=== PATIENT | male | born 1950 | race Hispanic/Latino ===

== ENCOUNTER 2021-12-04 17:15 | Observation (INO) | payer MEDICARE ==
[2021-12-04] MEDS ORDERED: NITROGLYCERIN 0.4 MG TAB SUBL SL ONE (18:00)
--- NOTE | 2021-12-04 18:01 | Emergency Department Report ---
ED General Adult HPI - General Chief complaint: Chest Pain Stated complaint: REFER BY DR MAURICIO PALACIO?: No Time Seen by Provider: 12/04/21 17:29 Source: patient, RN notes reviewed Mode of arrival: Ambulatory Limitations: No Limitations - History of Present Illness Initial comments: The patient is a pleasant 71-year-old gentleman with a reported history of ischemic heart disease, who presents to the ER today after stating that he was referred to the emergency room by his private seo intern for admission and urgent cardiac catheterization. Patient has not taken aspirin for 2 weeks. He is chest pain-free at this time. He states that he has been having intermittent exertional chest pain over the past few days. Pain is associated with exertion. He denies travel, surgery, immobilization, DVT/PE risk factors. He has no c omplaints of pain at this time. He is not COVID-19 vaccinated. -: Gradual, week(s) Location: chest Radiation: non-radiation Severity scale (0 -10): 0 Consistency: intermittent Improves with: rest Worsens with: movement, other (Exertion) - Related Data Allergies Allergy/AdvReac Type Severity Reaction Status Date / Time No Known Allergies Allergy Unverified 12/04/21 17:44 ED Review of Systems ROS: Stated complaint: REFER BY DR MARTÍNEZ Other details as noted in HPI Constitutional: denies: fever Eyes: denies: eye discharge ENT: denies: hearing loss Respiratory: shortness of breath Cardiovascular: chest pain Gastrointestinal: denies: abdominal pain, hematemesis, melena, hematochezia Musculoskeletal: denies: back pain Neurological: denies: weakness Hematological/Lymphatic: denies: easy bleeding ED Past Medical Hx - Past Medical History Previous Medical History?: Yes Hx Hypertension: Yes Hx CVA: No Hx Heart Attack/AMI: No Hx Congestive Heart Failure: No Hx Diabetes: No Hx Deep Vein Thrombosis: No Hx Pulmonary Embolism: No Hx GERD: No Hx Liver Disease: No Hx Renal Disease: No Hx of Cancer: No Hx Sickle Cell Disease: No Hx Arthritis: No Hx Headaches / Migraines: No Hx Seizures: No Hx Kidney Stones: No Hx Psychiatric Treatment: No Hx Asthma: No Hx COPD: No Hx Tuberculosis: No Hx Dementia: No Hx HIV: No Additional medical history: Pt was advised by Dr. Phillips the Body Art Technician to come to [facility] ED for a heart cath in the morning - Surgical History Past Surgical History?: No Hx Coronary Stent: No Hx Open Heart Surgery: No Hx Pacemaker: No Hx Internal Defibrillator: No Hx Cholecystectomy: No Hx Appendectomy: No Hx Breast Surgery: No Additional Surgical History: Heart Cath 5 years ago. Bilateral cataract surgery 2019. ED Physical Exam - General Limitations: No Limitations General appearance: alert, in no apparent distress - Head Head exam: Present: atraumatic, normocephalic - Eye Eye exam: Present: normal appearance, EOMI. Absent: nystagmus - ENT ENT exam: Present: normal exam, normal orophraynx, mucous membranes moist, normal external ear exam - Neck Neck exam: Present: normal inspection, full ROM. Absent: tenderness, meningismus - Respiratory Respiratory exam: Present: normal lung sounds bilaterally. Absent: respiratory distress, wheezes, rales, rhonchi, stridor, decreased breath sounds - Cardiovascular Cardiovascular Exam: Present: regular rate, normal rhythm, normal heart sounds. Absent: bradycardia, tachycardia, irregular rhythm, systolic murmur, diastolic murmur, rubs, gallop - GI/Abdominal GI/Abdominal exam: Present: soft. Absent: distended, tenderness, guarding, rebound, rigid, pulsatile mass - Rectal Rectal exam: Present: deferred - Extremities Exam Extremities exam: Present: normal inspection, full ROM, other (2+ pulses noted in the bilateral upper and lower extremities. There is no palpable cord. negative Homans sign. Muscular compartments are soft. The pelvis is stable.). Absent: pedal edema, calf tenderness - Back Exam Back exam: Present: normal inspection, full ROM. Absent: tenderness, CVA tenderness (R), CVA tenderness (L), paraspinal tenderness, vertebral tenderness - Neurological Exam Neurological exam: Present: alert, oriented X3, normal gait, other (No facial droop. Tongue midline. Extraocular movements intact bilaterally. Facial sens ation intact to light touch in V1, V2, V3 distribution bilaterally. 5 and a 5 strength in 4 extremities. Sensation intact to light touch in 4 extremities.). Absent: motor sensory deficit - Psychiatric Psychiatric exam: Present: normal affect, normal mood - Skin Skin exam: Present: warm, dry, intact, normal color. Absent: rash ED Course Vital Signs 12/04/21 12/04/21 12/04/21 17:56 17:58 20:08 Temperature 97.7 F Pulse Rate 85 Respiratory 17 Rate O2 Sat by Pulse 97 96 Oximetry O2 Sat by Pulse 99 Oximetry [ Digit-Finger] - Reevaluation(s) Reevaluation #1: 12/04/21 19:24 Differential diagnosis, including but not limited to: Acute coronary syndrome, stable angina, unstable angina Assessment and plan: 71-year-old gentleman with probable ischemic heart disease, and probable angina, who is pain-free at this time, who denies DVT/PE risk factors, who is low risk by Wells criteria for pulmonary embolism, referred to the emergency room by his primary seo intern for admission for urgent cardiac catheterization. Obtain appropriate laboratory studies, EKG, chest x-ray the chest, treat with pain medicine, as needed, give aspirin as he states he has not taken aspirin today, as needed nitroglycerin, and admit to the medical service. Discussed with his seo intern after initial laboratory studies and diagnostics have resulted. I discussed this with the patient and his significant other. They articulated understanding. All questions answered. Equal pulses in the upper and lower extremities, no pulsatile abdominal mass, and blood pressure unremarkable at this time. Aortic syndrome is very unlikely at this time. 12/04/21 19:27 Blood pressure 122/71 mmHg 12/04/21 20:07 Patient resting comfortably. Laboratory studies unremarkable. Contacted patient's seo intern, Dr. Martínez. Discussed the patient's history, physical, laboratory studies imaging studies, EKG findings and physical exam findings. Recommends n.p.o. after midnight, heparin drip, states he will follow in consultation. Requested hospitalist team admit patient. Patient updated with findings. He articulates understanding. He verbalizes understanding. All questions answered 12/04/21 21:15 Dr Gould to admit to [facility] - Pulse Oximetry Interpretation Digit-Finger Initial Pulse Oximetry Readin O2 Sat by Pulse Oximetry: 99 Actions Taken: none ED Medical Decision Making - Lab Data Result diagrams: 12/04/21 18:11 12/04/21 18:11 Vital Signs 12/04/21 12/04/21 17:56 17:58 Temperature 97.7 F Pulse Rate 85 Respiratory 17 Rate O2 Sat by Pulse 97 96 Oximetry Lab Results 12/04/21 Range/Units 18:11 WBC 5.7 (4.5-11.0) K/mm3 RBC 4.32 (3.65-5.03) M/mm3 Hgb 14.0 (11.8-15.2) gm/dl Hct 40.7 (35.5-45.6) % MCV 94 (84-94) fl MCH 32 (28-32) pg MCHC 34 (32-34) % RDW 14.0 (13.2-15.2) % Plt Count 227 (140-440) K/mm3 Lymph % (Auto) 22.6 (13.4-35.0) % [place] % (Auto) 8.0 H (0.0-7.3) % Eos % (Auto) 2.1 (0.0-4.3) % Baso % (Auto) 2.3 H (0.0-1.8) % Lymph # (Auto) 1.3 (1.2-5.4) K/mm3 [place] # (Auto) 0.5 (0.0-0.8) K/mm3 Eos # (Auto) 0.1 (0.0-0.4) K/mm3 Baso # (Auto) 0.1 (0.0-0.1) K/mm3 Seg Neutrophils % 65.0 (40.0-70.0) % Seg Neutrophils # 3.7 (1.8-7.7) K/mm3 Lab Results 12/04/21 12/04/21 12/04/21 Range/Units 18:11 18:11 18:11 WBC 5.7 (4.5-11.0) K/mm3 RBC 4.32 (3.65-5.03) M/mm3 Hgb 14.0 (11.8-15.2) gm/dl Hct 40.7 (35.5-45.6) % MCV 94 (84-94) fl MCH 32 (28-32) pg MCHC 34 (32-34) % RDW 14.0 (13.2-15.2) % Plt Count 227 (140-440) K/mm3 Lymph % (Auto) 22.6 (13.4-35.0) % [place] % (Auto) 8.0 H (0.0-7.3) % Eos % (Auto) 2.1 (0.0-4.3) % Baso % (Auto) 2.3 H (0.0-1.8) % Lymph # (Auto) 1.3 (1.2-5.4) K/mm3 [place] # (Auto) 0.5 (0.0-0.8) K/mm3 Eos # (Auto) 0.1 (0.0-0.4) K/mm3 Baso # (Auto) 0.1 (0.0-0.1) K/mm3 Seg Neutrophils % 65.0 (40.0-70.0) % Seg Neutrophils # 3.7 (1.8-7.7) K/mm3 PT 14.5 (12.2-14.9) Sec. INR 1.02 (0.87-1.13) APTT 29.7 (24.2-36.6) Sec. Sodium 139 (137-145) mmol/L Potassium 4.2 (3.6-5.0) mmol/L Chloride 104.5 (98-107) mmol/L Carbon Dioxide 22 (22-30) mmol/L Anion Gap 17 mmol/L BUN 24 H (9-20) mg/dL Creatinine 1.0 (0.8-1.3) mg/dL Estimated GFR > 60 ml/min BUN/Creatinine Ratio 24 % Glucose 95 (75-100) mg/dL Calcium 9.3 (8.4-10.2) mg/dL Total Bilirubin 0.30 (0.1-1.2) mg/dL AST 24 (5-40) units/L ALT 17 (7-56) units/L Alkaline Phosphatase 92 (35-129) units/L Troponin T < 0.010 (0.00-0.029) ng/mL Total Protein 7.2 (6.3-8.2) g/dL Albumin 4.2 (3.9-5) g/dL Albumin/Globulin Ratio 1.4 % - EKG Data -: EKG Interpreted by Or EKG shows normal: sinus rhythm Rate: normal - EKG Data When compared to previous EKG there are: previous EKG unavailable 12/04/21 19:23 The EKG is interpreted at 18: 27 This is a sinus rhythm, with a rate of 81 bpm. There is a normal axis, normal P wave axis, first-degree AV block, and left ventricular hypertrophy. There is no STEMI at this time. There is no prior for comparison. The QTC is 4 3 4 ms - Radiology Data Radiology results: pending, report reviewed, image reviewed CHEST 2 VIEWS INDICATION / CLINICAL INFORMATION: Chest Pain. COMPARISON: None available. FINDINGS: SUPPORT DEVICES: None. HEART / MEDIASTINUM: No significant abnormality. LUNGS / PLEURA: No significant pulmonary or pleural abnormality. No pneumothorax. ADDITIONAL FINDINGS: No significant additional findings. IMPRESSION: 1. No significant abnormality. Signer Name: Avis Arroyo MD Signed: 12/04/2021 5:54 PM Workstation Name: [id number] Critical Care Time: Yes Critical care time in (mins) excluding proc time.: 35 Critical care attestation.: If time is entered above; I have spent that time in minutes in the direct care of this critically ill patient, excluding procedure time. ED Disposition Clinical Impression: Acute chest pain Disposition: 09 ADMITTED INPATIENT Is pt being admited?: Yes Does the pt Need Aspirin: No Condition: Stable Instructions: Chest Pain (ED) Referrals: PRIMARY CARE, [Referring] - 3-5 Days Heart Score - HEART Score History: Moderately suspicious EKG: Non-specific Age: > 65 Risk factors: 1-2 risk factors Troponin: < normal limit HEART Score: 5 - EKG Read Time Time EKG Completed: 18:27 EKG Read Time: 18:27 - Critical Actions Critical Actions: 4-6 pts:12-16.6% risk of adverse cardiac event. Should be admitted
--- NOTE | 2021-12-04 18:58 | XRay Report ---
CHEST 2 VIEWS INDICATION / CLINICAL INFORMATION: Chest Pain. COMPARISON: None available. FINDINGS: SUPPORT DEVICES: None. HEART / MEDIASTINUM: No significant abnormality. LUNGS / PLEURA: No significant pulmonary or pleural abnormality. No pneumothorax. ADDITIONAL FINDINGS: No significant additional findings. IMPRESSION: 1. No significant abnormality. Signer Name: Avis Arroyo MD Signed: 12/04/2021 6:54 PM Workstation Name: [id number]
[2021-12-04] MEDS ORDERED: ASPIRIN 81 MG TAB CHEW PO ONE (19:01)
[2021-12-04] MEDS ORDERED: NITROGLYCERIN 0.4 MG TAB SUBL SL PRN (19:01)
[2021-12-04 19:15] LABS: Basophils # (Auto) 0.1 K/mm3 (0.0-0.1); Basophils % (Auto) 2.3 % (0.0-1.8); Eosinophils # (Auto) 0.1 K/mm3 (0.0-0.4); Eosinophils % (Auto) 2.1 % (0.0-4.3); Hematocrit 40.7 % (35.5-45.6); Lymphocytes # (Auto) 1.3 K/mm3 (1.2-5.4); Lymphocytes % (Auto) 22.6 % (13.4-35.0); Mean Corpuscular HGB Conc 34 % (32-34); Mean Corpuscular Volume 94 fl (84-94); Monocytes # (Auto) 0.5 K/mm3 (0.0-0.8); Platelet Count 227 K/mm3 (140-440); Red Blood Count 4.32 M/mm3 (3.65-5.03)
[2021-12-04 19:28] LABS: INR 1.02 (0.87-1.13); Partial Thromboplastin Time 29.7 Sec. (24.2-36.6)
[2021-12-04 19:34] LABS: Alanine Aminotransferase 17 units/L (7-56); Albumin 4.2 g/dL (3.9-5); BUN/Creatinine Ratio 24; Blood Urea Nitrogen 24 mg/dL (9-20); Calcium 9.3 mg/dL (8.4-10.2); Hemolysis Index 7
[2021-12-04] MEDS ORDERED: HEPARIN 10,000 UNITS/10 ML VIAL IV ONE (20:05)
[2021-12-04] MEDS ORDERED: HEPARIN 10,000 UNITS/10 ML VIAL IV PRN (20:05)
[2021-12-04] MEDS ORDERED: HEPARIN/ 0.45% NACL DRIP 25,000 UNIT/500 ML BAG IV SCH (21:00)
[2021-12-04] MEDS ORDERED: MORPHINE 4 MG/1 ML INJ IV PRN (21:31)
[2021-12-04] MEDS ORDERED: traMADol 50 MG TAB PO PRN (21:31)
[2021-12-04] MEDS ORDERED: ACETAMINOPHEN 325 MG TAB PO PRN (21:31)
--- NOTE | 2021-12-04 21:40 | History and Physical Report ---
History of Present Illness Date of examination: 12/04/21 Date of admission: 12/04/21 Chief complaint: Chest pain History of present illness: 71-year-old gentleman with history of ischemic heart disease and hypertension was brought to the emergency room because of chest pain which is 5-7 over 10 intermittent particularly on exertion over the last few days.patient was referred to the emergency room by his private chalk machine operator for admission and urgent cardiac catheterization. Patient has not taken aspirin for 2 weeks. He is chest pain-free at this time. Pain is associated with exertion. He denies travel, surgery, In the emergency room initial cardiac enzyme is negative. Troponin is 0.010. Subsequently Case was discussed with chalk machine operator. We are going to admit the patient we will put the patient on heparin drip for possible cardiac cath in the morning Past History Past Medical History: CAD, hypertension Past Surgical History: cataract removal, Other (Heart cath 5 years ago) Social history: no significant social history Family history: no significant family history Medications and Allergies Allergies Allergy/AdvReac Type Severity Reaction Status Date / Time No Known Allergies Allergy Unverified 12/04/21 17:44 Active Meds: Active Medications Acetaminophen (Acetaminophen 325 Mg Tab) 650 mg PO Q6H PRN PRN Reason: Pain, Mild (1-3) Aspirin (Aspirin Ec 325 Mg Tab) 325 mg PO QDAY JUSTIN Atorvastatin Calcium (Atorvastatin 40 Mg Tab) 40 mg PO QHS [facility] Heparin Sodium (Porcine) (Heparin 10,000 Units/10 Ml Vial) 3,200 unit 40 unit/kg (3200 unit) IV Q6H PRN PRN Reason: Anti-Xa Assay < 0.1 units/ml Heparin Sodium/Sodium Chloride (Heparin/ 0.45% Nacl-25,000 Unit/500 Ml) 25,000 unit in 500 mls @ 20 mls/hr IV TITRATE JUSTIN; Protocol Sodium Chloride (Nacl 0.45% 1000 Ml) 1,000 mls @ 100 mls/hr IV DIRECT JUSTIN Morphine Sulfate (Morphine 4 Mg/1 Ml Inj) 2 mg IV Q5MIN PRN PRN Reason: Chest Pain unrelieved by NTG Nitroglycerin (Nitroglycerin 0.4 Mg Tab Subl) 0.4 mg SL .Q5MIN PRN PRN Reason: Chest Pain Pantoprazole Sodium (Pantoprazole 40 Mg Tab) 40 mg PO QDAY JUSTIN Sodium Chloride (Sodium Chloride 0.9% 10 Ml Flush Syringe) 10 ml IV PRN PRN PRN Reason: LINE FLUSH Tramadol HCl (Tramadol 50 Mg Tab) 50 mg PO Q6H PRN PRN Reason: Pain, Moderate (4-6) Review of Systems Cardiovascular: chest pain, shortness of breath Exam - Constitutional Vitals: Temp Pulse Resp BP Pulse Ox 97.7 F 85 17 99 12/04/21 17:56 12/04/21 17:56 12/04/21 17:56 12/04/21 21:15 General appearance: Present: no acute distress, well-nourished - EENT Eyes: Present: PERRL ENT: hearing intact, clear oral mucosa - Neck Neck: Present: supple, normal ROM - Respiratory Respiratory effort: normal Respiratory: bilateral: diminished - Cardiovascular Heart Sounds: Present: S1 & S2. Absent: rub, click - Extremities Extremities: pulses symmetrical, No edema Peripheral Pulses: within normal limits - Abdominal General gastrointestinal: Present: soft, non-tender, non-distended, normal bowel sounds Male genitourinary: Present: normal - Integumentary Integumentary: Present: clear, warm, dry - Musculoskeletal Musculoskeletal: gait normal, strength equal bilaterally - Psychiatric Psychiatric: appropriate mood/affect, intact judgment & insight - Neurologic Neurologic: CNII-XII intact, moves all extremities HEART Score - HEART Score EKG: Non-specific Age: > 65 Risk factors: 1-2 risk factors Troponin: Troponin T < 0.010 ng/mL (0.00-0.029) 12/04/21 20:59 Troponin: < normal limit - Critical Actions Critical Actions: 4-6 pts:12-16.6% risk of adverse cardiac event. Should be admitted Results - Labs CBC & Chem 7: 12/04/21 18:11 12/04/21 18:11 Labs: Laboratory Last Values WBC 5.7 K/mm3 (4.5-11.0) 12/04/21 18:11 RBC 4.32 M/mm3 (3.65-5.03) 12/04/21 18:11 Hgb 14.0 gm/dl (11.8-15.2) 12/04/21 18:11 Hct 40.7 % (35.5-45.6) 12/04/21 18:11 MCV 94 fl (84-94) 12/04/21 18:11 MCH 32 pg (28-32) 12/04/21 18:11 MCHC 34 % (32-34) 12/04/21 18:11 RDW 14.0 % (13.2-15.2) 12/04/21 18:11 Plt Count 227 K/mm3 (140-440) 12/04/21 18:11 Lymph % (Auto) 22.6 % (13.4-35.0) 12/04/21 18:11 [place] % (Auto) 8.0 % (0.0-7.3) H 12/04/21 18:11 Eos % (Auto) 2.1 % (0.0-4.3) 12/04/21 18:11 Baso % (Auto) 2.3 % (0.0-1.8) H 12/04/21 18:11 Lymph # (Auto) 1.3 K/mm3 (1.2-5.4) 12/04/21 18:11 [place] # (Auto) 0.5 K/mm3 (0.0-0.8) 12/04/21 18:11 Eos # (Auto) 0.1 K/mm3 (0.0-0.4) 12/04/21 18:11 Baso # (Auto) 0.1 K/mm3 (0.0-0.1) 12/04/21 18:11 Seg Neutrophils % 65.0 % (40.0-70.0) 12/04/21 18:11 Seg Neutrophils # 3.7 K/mm3 (1.8-7.7) 12/04/21 18:11 PT 14.5 Sec. (12.2-14.9) 12/04/21 18:11 INR 1.02 (0.87-1.13) 12/04/21 18:11 APTT 29.7 Sec. (24.2-36.6) 12/04/21 18:11 Sodium 139 mmol/L (137-145) 12/04/21 18:11 Potassium 4.2 mmol/L (3.6-5.0) 12/04/21 18:11 Chloride 104.5 mmol/L (98-107) 12/04/21 18:11 Carbon Dioxide 22 mmol/L (22-30) 12/04/21 18:11 Anion Gap 17 mmol/L 12/04/21 18:11 BUN 24 mg/dL (9-20) H 12/04/21 18:11 Creatinine 1.0 mg/dL (0.8-1.3) 12/04/21 18:11 Estimated GFR > 60 ml/min 12/04/21 18:11 BUN/Creatinine Ratio 24 % 12/04/21 18:11 Glucose 95 mg/dL (75-100) 12/04/21 18:11 Calcium 9.3 mg/dL (8.4-10.2) 12/04/21 18:11 Total Bilirubin 0.30 mg/dL (0.1-1.2) 12/04/21 18:11 AST 24 units/L (5-40) 12/04/21 18:11 ALT 17 units/L (7-56) 12/04/21 18:11 Alkaline Phosphatase 92 units/L (35-129) 12/04/21 18:11 Troponin T < 0.010 ng/mL (0.00-0.029) 12/04/21 20:59 Total Protein 7.2 g/dL (6.3-8.2) 12/04/21 18:11 Albumin 4.2 g/dL (3.9-5) 12/04/21 18:11 Albumin/Globulin Ratio 1.4 % 12/04/21 18:11 - Imaging and Cardiology Chest x-ray: report reviewed Assessment and Plan VTE prophylaxis?: Chemical Plan of care discussed with patient/family: Yes - Patient Problems (1) Acute coronary syndrome Current Visit: Yes Status: Acute Plan to address problem: Admit the patient to the medical telemetry. Nothing by mouth. Aspirin 325 mg p.o. daily. Lipitor 40 mg p.o. daily. Heparin drip as per protocol. Nitroglycerin as needed. Serial cardiac enzyme. Cardiology is consulted and patient is going for cardiac cath in the morning (2) CAD (coronary artery disease) Current Visit: Yes Status: Acute Plan to address problem: Nothing by mouth. Aspirin 325 mg p.o. daily. Lipitor 40 mg p.o. daily. Heparin drip as per protocol. Nitroglycerin as needed. Serial cardiac enzyme. Cardiology is consulted and patient is going for cardiac cath in the morning (3) Hypertension Current Visit: Yes Status: Acute Plan to address problem: Hydralazine 10 mg IV every 6 hours as needed. We will continue the home medication (4) DVT prophylaxis Current Visit: Yes Status: Acute Plan to address problem: Heparin drip per DVT prophylaxis. Protonix 40 mg p.o. daily for GI prophylaxis. Patient is a full code
[2021-12-04] MEDS ORDERED: SODIUM CHLORIDE 0.9% 500 ML 500 ML IV SCH (22:00)
[2021-12-04 22:17] LABS: BUN/Creatinine Ratio 23; Blood Urea Nitrogen 23 mg/dL (9-20); Calcium 9.4 mg/dL (8.4-10.2); Hemolysis Index 12
[2021-12-04 22:59] LABS: Basophils # (Auto) 0.1 K/mm3 (0.0-0.1); Basophils % (Auto) 0.8 % (0.0-1.8); Eosinophils # (Auto) 0.2 K/mm3 (0.0-0.4); Eosinophils % (Auto) 2.3 % (0.0-4.3); Hematocrit 41.3 % (35.5-45.6); Hemoglobin 14.3 gm/dl (11.8-15.2); Lymphocytes # (Auto) 2.1 K/mm3 (1.2-5.4); Lymphocytes % (Auto) 31.7 % (13.4-35.0); Mean Corpuscular HGB Conc 35 % (32-34); Mean Corpuscular Volume 93 fl (84-94); Monocytes # (Auto) 0.6 K/mm3 (0.0-0.8); Monocytes % (Auto) 9.5 % (0.0-7.3); Platelet Count 230 K/mm3 (140-440); Red Blood Count 4.44 M/mm3 (3.65-5.03); Red Cell Distribution Width 14.1 % (13.2-15.2)
[2021-12-05] MEDS: SODIUM CHLORIDE 0.45% 1000 ML 1,000 ML IV SCH ×2 (03:21→08:59)
[2021-12-05 06:36] LABS: Basophils # (Auto) 0.1 K/mm3 (0.0-0.1); Eosinophils # (Auto) 0.2 K/mm3 (0.0-0.4); Eosinophils % (Auto) 3.1 % (0.0-4.3); Hematocrit 41.1 % (35.5-45.6); Hemoglobin 13.7 gm/dl (11.8-15.2); Lymphocytes # (Auto) 1.8 K/mm3 (1.2-5.4); Lymphocytes % (Auto) 29.9 % (13.4-35.0); Mean Corpuscular HGB Conc 33 % (32-34); Mean Corpuscular Volume 93 fl (84-94); Monocytes # (Auto) 0.6 K/mm3 (0.0-0.8); Platelet Count 216 K/mm3 (140-440); Red Blood Count 4.41 M/mm3 (3.65-5.03)
[2021-12-05 06:41] LABS: INR 1.03 (0.87-1.13)
[2021-12-05 06:48] LABS: BUN/Creatinine Ratio 22; Blood Urea Nitrogen 20 mg/dL (9-20); Hemolysis Index 14
[2021-12-05] MEDS ORDERED: ASPIRIN EC 325 MG TAB PO ONE (07:45)
[2021-12-05] MEDS: ASPIRIN EC 325 MG TAB PO SCH ×2 (07:47)
[2021-12-05] MEDS ORDERED: HEPARIN 10,000 UNITS/10 ML VIAL ONE (08:16)
[2021-12-05] MEDS ORDERED: LIDOCAINE (2%) 20 MG/1 ML VIAL 20 ML MDV INFILTRATI ONE (08:20)
[2021-12-05 08:21] VITALS: BP 147/71
[2021-12-05] MEDS: MIDAZOLAM 2 MG/2 ML INJ ONE ×3 (08:56→09:17)
[2021-12-05] MEDS: fentaNYL 100 MCG/2 ML INJ ONE ×3 (08:57→09:18)
[2021-12-05] MEDS: LIDOCAINE (2%) 20 MG/1 ML VIAL 20 ML MDV INFILTRATI ONE ×2 (08:57→09:17)
[2021-12-05] MEDS: VERAPAMIL 5 MG/2 ML INJ ONE ×2 (08:58→09:19)
[2021-12-05] MEDS: NITROGLYCERIN SYRINGE 3 ML ONE ×2 (08:59→09:19)
[2021-12-05] MEDS: HEPARIN/NS 5000 UNIT/500ML 1,000 ML IR ONE ×2 (08:59→09:20)
[2021-12-05] MEDS ORDERED: PANTOPRAZOLE 40 MG TAB PO SCH (10:00)
--- NOTE | 2021-12-05 10:02 | Cardiac Catherization Report ---
DATE OF PROCEDURE: 12/05/2021 The patient is here for a heart catheterization. REFERRING PHYSICIAN: Hospitalist service. INDICATIONS FOR PROCEDURE: The patient is a very pleasant 71-year-old gentleman, who has been having unstable angina is seen in the office yesterday. 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 He has a history of hypertension and past tobacco use. He denies any syncopal spells, but states every time he exerts himself, he has chest tightness and diaphoresis. This is new over the past several months. At this point, we discussed the options with him. He essentially is here for unstable angina. Risks, benefits and alternatives discussed at length prior to obtaining informed consent. PROCEDURE IN DETAIL: The patient was brought to supervisor laboratory in a postabsorptive state, prepped and draped in sterile fashion. Jose's test in right hand is normal. 2 mL of 2% lidocaine used to anesthetize the right wrist. A standard 6-Wolof hydrophilic sheath used to cannulate the right radial artery via modified Seldinger technique. All exchanges performed to exchange a J-tip guidewire. A JL3.5 catheter was used to engage the left main. No dampening or ventricularization. Cineangiography performed in all projections. JR4 catheter used to cross the aortic valve under fluoroscopic guidance. Left ventriculography performed thorough ORTIZ projections via hand injections, catheter flushed. Manual pullback performed with continuous pressure monitoring. Catheter used to engage the right coronary. No dampening or ventricularization. Cineangiography performed in all projections. Next, catheter removed from the body of wire, sheath removed. Manual pressure used to achieve hemostasis. I directly supervised the administration of moderate sedation with fentanyl and Versed from 9:08 a.m. to 9:40 a.m. No immediate complications identified. DATA: Aortic pressure is 120/60, LV pressure is 110, LVEDP of 6 mmHg. Left ventriculography reveals normal systolic performance, estimated ejection fraction 55-60%. No evidence of aortic stenosis. CORONARY ANATOMY: 1. Strongly right dominant system. Right coronary is a large vessel, courses AV groove, distally bifurcates in the posterior descending and posterolateral branches. No discrete stenoses identified. 2. Left main without significant disease, bifurcates into left anterior descending, left circumflex. LAD is a moderate-sized vessel, courses anterior intergroove, wraps around the apex. Scattered luminal irregularities, but no significant disease in LAD or diagonal system. 3. Left circumflex is moderate sized vessel, courses AV groove. No significant disease. Conclusions: 1. Minimal nonobstructive disease in this strongly right dominant system with ANGELIC 3 flow throughout. 2. Normal left ventricular systolic performance, estimated ejection fraction 55-60%. 3. Possible mild aortic stenosis with a ? peak gradient of 10-20 mmHg, but this may also be catheter whip. 4. Normal LVEDP. The patient is clinically stable. Check a V/Q scan. Standard radial care. Discussed with Vanesa and the patient at length. Optimize medications. Continue workup in the office, the patient will be discharged today. TID: [id number] RECEIPT: [id number] [facility]
--- NOTE | 2021-12-05 10:35 | Nuclear Medicine Report ---
NUCLEAR MEDICINE PERFUSION SCAN INDICATION: CP/SOB CORRELATION: Chest x-ray 12/04/2021 RADIOPHARMACEUTICAL: Perfusion: 5.5 mCi Tc-99m MAA given IV FINDINGS: Perfusion images show symmetric and uniform radiotracer distribution throughout bilateral lung zones with no evidence of unmatched segmental perfusion defects. Normal cardiac silhouette. IMPRESSION: Low probability perfusion scan for pulmonary embolism. Signer Name: Josias Seo Jr, MD Signed: 12/05/2021 10:31 AM Workstation Name: [id number]
--- NOTE | 2021-12-05 10:56 | Electrocardiograph Report ---
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
--- NOTE | 2021-12-05 11:00 | Electrocardiograph Report ---
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
--- NOTE | 2021-12-05 11:01 | Electrocardiograph Report ---
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
--- NOTE | 2021-12-05 13:49 | Discharge Summary ---
Providers - Providers Date of Admission: 12/04/21 21:31 Date of discharge: 12/05/21 Attending physician: MEE REYES 12/04/21 Consult to Cardiac Rehabilitation [CONS] Routine Reason For Exam: Phase I 12/04/21 18:00 Consult to Cardiology [CONS] Stat Consulting Provider: MARI MARTÍNEZ Reason For Exam: acute chest pain Primary care physician: BLAINE DON Hospitalization Reason for admission: Chest pain Condition: Stable Pertinent studies: Chest x-ray; no acute abnormality Cardiac cath; nonobstructive coronaries normal LVEF VQ scan; low probability for PE Procedures: Left heart catheterization; 12/05 Minimal nonobstructive disease strongly right dominant system with ANGELIC III flow throughout Normal left ventricular systolic function EF 55 to 60% Possible mild aortic stenosis with a peak gradient between 10 to 20 mmHg this may also be catheter with normal LV EDP. Rest of the work-up as outpatient cardiology cleared for discharge Hospital course: (1) Acute coronary syndrome Current Visit: Yes Status: Acute Plan to address problem: Admit the patient to the medical telemetry. Nothing by mouth. Aspirin 325 mg p.o. daily. Lipitor 40 mg p.o. daily. Heparin drip as per protocol. Nitroglycerin as needed. Serial cardiac enzyme. Cardiology is consulted and patient is going for cardiac cath in the morning (2) CAD (coronary artery disease) Current Visit: Yes Status: Acute Plan to address problem: Nothing by mouth. Aspirin 325 mg p.o. daily. Lipitor 40 mg p.o. daily. Heparin drip as per protocol. Nitroglycerin as needed. Serial cardiac enzyme. Cardiology is consulted and patient is going for cardiac cath in the morning (3) Hypertension Current Visit: Yes Status: Acute Plan to address problem: Hydralazine 10 mg IV every 6 hours as needed. We will continue the home medication (4) DVT prophylaxis Current Visit: Yes Status: Acute Plan to address problem: Heparin drip per DVT prophylaxis. Protonix 40 mg p.o. daily for GI prophylaxis. Patient is a full code Disposition: 01 HOME / SELF CARE / HOMELESS Final Discharge Diagnosis (Prints w/discharge instructions): Acute coronary syndrome. History of coronary artery disease. Negative heart cath. Normal left ventricular ejection fraction. Hypertension Time spent for discharge: 35 min Core Measure Documentation - Palliative Care Palliative Care/ Comfort Measures: Not Applicable - Core Measures Any of the following diagnoses?: none Exam - Constitutional Vitals: Temp Pulse Resp BP Pulse Ox 98.0 F 52 L 16 147/71 100 12/05/21 03:48 12/05/21 05:50 12/05/21 05:50 12/05/21 05:50 12/05/21 10:00 General appearance: Present: no acute distress, well-nourished - EENT Eyes: Present: PERRL - Neck Neck: Present: supple, normal ROM - Respiratory Respiratory effort: normal Respiratory: bilateral: diminished, negative: rales, rhonchi, wheezing - Cardiovascular Rhythm: regular Heart Sounds: Present: S1 & S2 - Extremities Extremities: no ischemia, No edema - Abdominal General gastrointestinal: Present: soft, non-tender, non-distended, normal bowel sounds - Integumentary Integumentary: Present: clear, warm - Musculoskeletal Musculoskeletal: strength equal bilaterally - Psychiatric Psychiatric: appropriate mood/affect, cooperative - Neurologic Neurologic: CNII-XII intact, moves all extremities Plan Activity: no restrictions Diet: other (cardiac diet) Additional Instructions: If you have worsening symptoms contact MD or go to the nearest emergency room as needed. Advised to follow primary care physician in 3 to 5 days advised to follow private cancer program consultant in 1 week. Patient strongly advised to comply with medications, diet, follow-up visit Follow up with: PRIMARY CARE, [Referring] - 3-5 Days MARI MARTÍNEZ MD [Staff Physician] - 10 Days Prescriptions: Aspirin EC [Halfprin EC] 81 mg PO QDAY #30 tablet. AtorvaSTATin [Lipitor] 40 mg PO QHS #30 tablet Metoprolol [Lopressor TAB] 12.5 mg PO BID #60 tablet Nitroglycerin [Nitrostat] 0.4 mg SL .Q5MIN PRN #20 tablet PRN Reason: Chest Pain Pantoprazole [Protonix TAB] 40 mg PO QDAY #14 tablet Ranolazine ER [Ranexa ER] 500 mg PO BID #60 tablet traMADoL [Ultram 50 MG tab] 50 mg PO Q6H PRN #20 tablet PRN Reason: Pain, Moderate (4-6)
--- NOTE | 2021-12-05 16:18 | Consultation ---
History of Present Illness Consult date: 12/05/21 Requesting physician: AIDA PHAN Consult reason: chest pain, known to you History of present illness: Patient 71-year-old male with a past medical history of hypertension and tobacco abuse who was brought to the ED yesterday due to a complaint of intermittent chest pain which he rated as 7 out of 10 worse with exertion but has been going on for several weeks. Patient is followed by Dr. Grayson of our office and due to patient's complaint of chest pain was referred to come to the ED for a cardiac cath. At time of interview patient denies nausea, vomiting, shortness of breath, diaphoresis. Patient for cardiac cath this a.m. Past History Past Medical History: CAD, hypertension Past Surgical History: cataract removal, Other (Heart cath 5 years ago) Social history: no significant social history Family history: no significant family history Medications and Allergies Allergies Allergy/AdvReac Type Severity Reaction Status Date / Time No Known Allergies Allergy Unverified 12/04/21 17:44 Home Medications Medication Instructions Recorded Confirmed Last Taken Type Aspirin EC [Halfprin EC] 81 mg PO QDAY #30 tablet. 12/05/21 Unknown Rx AtorvaSTATin [Lipitor] 40 mg PO QHS #30 tablet 12/05/21 Unknown Rx Metoprolol [Lopressor TAB] 12.5 mg PO BID #60 tablet 12/05/21 Unknown Rx Nitroglycerin [Nitrostat] 0.4 mg SL .Q5MIN PRN #20 tablet 12/05/21 Unknown Rx Pantoprazole [Protonix TAB] 40 mg PO QDAY #14 tablet 12/05/21 Unknown Rx Ranolazine ER [Ranexa ER] 500 mg PO BID #60 tablet 12/05/21 Unknown Rx traMADoL [Ultram 50 MG tab] 50 mg PO Q6H PRN #20 tablet 12/05/21 Unknown Rx Review of Systems Constitutional: other (See HPI) Physical Examination Vital Signs BP 132/90 12/04/21 17:52 General appearance: no acute distress HEENT: Positive: PERRL Cardiac: Positive: Reg Rate and Rhythm Lungs: Positive: clear to auscultation, Normal Breath Sounds Neuro: Positive: Grossly Intact Abdomen: Positive: Soft, Active Bowel Sounds Skin: Negative: Rash, Suspicious Lesions, Ulceration Extremities: Present: upper extr. pulses. Absent: edema Results 12/05/21 06:13 12/05/21 06:13 Cardiac Enzymes 12/04/21 Range/Units 18:11 AST 24 (5-40) units/L Coagulation 12/04/21 12/05/21 Range/Units 18:11 06:13 PT 14.5 14.6 (12.2-14.9) Sec. INR 1.02 1.03 (0.87-1.13) APTT 29.7 (24.2-36.6) Sec. CBC 12/04/21 12/04/21 12/05/21 Range/Units 18:11 22:24 06:13 WBC 5.7 6.7 5.9 (4.5-11.0) K/mm3 RBC 4.32 4.44 4.41 (3.65-5.03) M/mm3 Hgb 14.0 14.3 13.7 (11.8-15.2) gm/dl Hct 40.7 41.3 41.1 (35.5-45.6) % Plt Count 227 230 216 (140-440) K/mm3 Lymph # (Auto) 1.3 2.1 1.8 (1.2-5.4) K/mm3 [place] # (Auto) 0.5 0.6 0.6 (0.0-0.8) K/mm3 Eos # (Auto) 0.1 0.2 0.2 (0.0-0.4) K/mm3 Baso # (Auto) 0.1 0.1 0.1 (0.0-0.1) K/mm3 Comprehensive Metabolic Panel 12/04/21 12/04/21 12/05/21 Range/Units 09:00 18:11 06:13 Sodium 144 139 141 (137-145) mmol/L Potassium 4.4 4.2 4.2 (3.6-5.0) mmol/L Chloride 106.9 104.5 106.9 (98-107) mmol/L Carbon Dioxide 20 L 22 22 (22-30) mmol/L BUN 23 H 24 H 20 (9-20) mg/dL Creatinine 1.0 1.0 0.9 (0.8-1.3) mg/dL Glucose 112 H 95 92 (75-100) mg/dL Calcium 9.4 9.3 9.0 (8.4-10.2) mg/dL AST 24 (5-40) units/L ALT 17 (7-56) units/L Alkaline Phosphatase 92 (35-129) units/L Total Protein 7.2 (6.3-8.2) g/dL Albumin 4.2 (3.9-5) g/dL - Imaging and Cardiology Cardiac cath: report reviewed EKG interpretations - Telemetry EKG Rhythm: Sinus Rhythm - EKG Sinus rhythms and dysrhythmias: sinus rhythm Chamber hypertrophy or enlargement: left ventricular hypertro Assessment and Plan Patient 71-year-old male with a past medical history of hypertension and tobacco abuse who was brought to the ED yesterday due to a complaint of intermittent chest pain Hypertension Coronary artery disease History of tobacco use Cardiac cath 12/05/2021-minimal nonobstructive coronary artery disease. Normal left ventricular systolic function estimated EF 55 to 60%. Possible mild aortic stenosis. Plan: EKG shows sinus 73 with prolonged ND interval and probable LVH. No acute ischemic changes. Troponins negative x4 Cardiac cath results noted above Patient had a VQ scan which was negative Due to patient's complaint of chest pain will initiate Ranexa 500 mg p.o. twice daily Cardiac status otherwise stable for discharge Patient to follow-up on 12/14/2021 at 1:45 PM at our [place] office for an echo and Holter monitor Patient has a follow-up appointment on 12/22/2021 at 2:30 PM at our [place] location with Dr. Caldwell, [facility] optimization specialist. Phone #[phone] Patient seen in conjunction with Dr. Grayson who agrees with this plan - Patient Problems (1) CAD (coronary artery disease) Current Visit: No Status: Acute (2) Hypertension Current Visit: No Status: Acute
[2021-12-05] MEDS ORDERED: RANOLAZINE ER 500 MG TAB 12HR PO SCH (22:00)
== END 2021-12-05 15:40 | disposition home or self-care (01) ==
LOC: ED 17:15 → INTOOBSV 21:31 → 4A 21:31
PROVIDERS: ADMIT Hospitalist; ATTEND Internal Medicine
DX: I24.9 Acute ischemic heart disease, unspecified (principal); I25.10 Atherosclerotic heart disease of native coronary artery without angina pectoris; I10 Essential (primary) hypertension; R07.89 Other chest pain; Z98.49 Cataract extraction status, unspecified eye; Z95.1 Presence of aortocoronary bypass graft; Z79.82 Long term (current) use of aspirin
CPT/HCPCS: 36415; 71046; 78580; 80048; 80053; 84484; 85025; 85520; 85610; 85730; 93005; 93458; 96365; 96366; 96376; 99291; A9540; C1894; G0378; J1644; J1815; J2250; J3010; J3490; J7030; Q9967